=== PATIENT | male | born 1975 | race Caucasian/White ===

== ENCOUNTER 2025-08-25 08:40 | Outpatient (REF) | payer OTHER, SELFPAY ==
[2025-08-25 10:49] LABS: Hematocrit 42.0 % (42.0-52.0); Hemoglobin 14.4 g/dl (14.0-18.0); Mean Corpuscular HGB Conc 34.3 g/dl (31.0-36.0); Mean Corpuscular Hemoglobin 30.3 pg (27.0-33.0); Mean Corpuscular Volume 88.4 fL (80.0-98.0); NRBC Abs Auto 0.000 X10*3/uL (0.0-0.012); NRBC Pct Auto 0.0 /100WBC (0.0-0.2); Platelet Count 163 X10*3/uL (160-400); Red Blood Count 4.75 X10*6/uL (4.60-5.80); White Blood Count 6.0 X10*3/uL (4.8-10.8)
--- OUTSIDE RECORDS SUMMARY | 2025-08-25 11:09 | XMS_ITS | Clinical Summary ---
Author Organization [facility] [address] [facility] lding Address [address] [place] [address] Phone Care Team Providers Care South Asian History Professor Name Role Phone Sandra Wilder MD Primary Care Prov ider Allergies No known active allergies Medications ibuprofen (ADVIL,MOTRIN) 200 mg tablet Take 1 tablet (200 mg total) by mouth every 8 (eight) hours if needed for mild pain or moderate pain. Active felodipine (PLENDIL) 5 mg 24 hr tablet TAKE 1 TABLET BY MOUTH TWICE A DAY 180 tablet 1 5 Active sodium,potassiu m,mag sulfates (Suprep Bowel Prep Kit) 17.5-3.13-1.6 gram recon soln bowel prep kit oral solution Take 177ML by mouth for 2 doses. SEE INSTRUCTIONS PROVIDED BY OFFICE. 1 kit 5 Active Active Problems Problem Noted Date Diagnosed Date Family history of colon cancer in father 025 Benign prostatic hyperplasia 11/15/2024 Hyperlipidemia 11/13/2023 Goiter 04/29/2018 Overview (08/17/2024): [place] 04/2018. Normal tsh Obstructive sleep apnea 02/22/2018 Overview (08/17/2024): [facility] Home Polysomnogram: Date 02/15/2018; AHI 6, Unclassified apneas 0; Obstructive apneas 0; Central apneas 2; Mixed apneas 0; hypopneas 40; average oxygen saturation 95% (lowest 81% without saturations <88% for 5% or more of study) - Obstructive Sleep Apnea - mild; mostly hypopneas; without sleep related hypoventilation by 2018 home polysomnogram. *Pt reports non-adherance to CPAP 08/2018. Tried multiple masks and has given up.* Aneurysm of thoracic aorta (CMS/HCC V24) 016 Essential hypertension 06/25/2016 Palpitations 01/14/2016 Congenital heart disease in adult 05/11/2015 Encounters Date Type Department Care Team Description 07/05/2025 9:45 AM EDT Office Visit [facility] [place] [address] [place] [id number] [place] Bursitis of left shoulder (Primary Dx) from Last 3 Months Immunizations Immunization Administration Dates Next Due Hepatitis A Adult (Havrix; V aqta) 19yo and older 05/04/2019 Influenza Quadravalent, MDCK , 0.5ml, preservative free (Flucelvax) 6mo and older 10/14/2019 Influenza Quadravalent, MDCK , 0.5ml, with preservative (Flucelvax) 6mo and older 07/09/2021 Influenza trivalent, 0.5mL, preservative free (Fluarix; FluLaval; Fluzone) ages 6mo and older (Afluria) 3 years and older 06/27/2020 Influenza, Unspecified 06/30/2024,07/20/2023, Tdap Tetanus diptheria acell ular pertussis (Boostrix; Adacel) 7yo and older 07/26/2022,05/11/2015 Surgical History Surgery Date Site/Laterality Comments OTHER SURGICAL HISTORY PROCEDURE: [place] RPR CAR ANOMAL SURG ENLGMENT VENTR SEPTL DFCT BLADDER SURGERY 2014 PROCEDURE: HISTORICAL BLADDER SURGERY; COMMENT: ? benign internal cysts OTHER SURGICAL HISTORY 1992 PROCEDURE: HISTORY OTHER; COMMENT: Open exploration due to peritonitis ruptured appendix COLONOSCOPY 08/27/2018 PROCEDURE: HISTORICAL COLONOSCOPY; COMMENT: Diminutive polyps 3: Tubular adenoma 2, hyperplastic 1. COLONOSCOPY 08/17/2020 PROCEDURE: HISTORICAL COLONOSCOPY; COMMENT: Normal; repeat in 5 years. UPPER GASTROINTESTINAL ENDOSCOPY 08/17/2020 PROCEDURE: [place] UPPER GI ENDOSCOPY PERFORMED; COMMENT: Visually normal, gastric biopsies obtained: Positive for Helicobacter pylori. Medical History Medical History Date Comments Simplex coarctation of the aorta DX:Simplex coarctation of the aorta Family history of colon cancer D X:Family history of colon cancer Family history of colonic polyps DX:Family history of colonic polyps Essential hypertension DX:Essent ial hypertension Disorder of thyroid DX:Disorder of thyroid Family history of colon cancer 04/14/2018 D X:Family history of colon cancer History of Helicobacter pylo ri infection 08/22/2020 DX:History of Helicobacter p ylori infection; COMMENT: 08/22/2020---treated; stool test negative 10/09/2020. Hyperlipidemia 11/13/2023 DX:Hyperlipidemi a Family History Medical History Relation Name Comments Stomach cancer Aunt maternal Colon cancer Father Colon polyps Father Prostate cancer Father Prostate cancer Paternal Grandfather Colon polyps Sister Relation Name Status Comments Aunt Father (Age 78) Maternal Grandfather Maternal Grandmother Mother Alive Paternal Grandfather Paternal Grandmother Sister Alive Social History Tobacco Use Types Packs/Day Years Used Date Smoking Tobacco: Never Smokeless Tobacco: Never Tobacco Cessation:Counseling Given: Not Answered Alcohol Use Standard Drinks/Week Comments No 0 (1 standard drink = 0.6 oz pur e alcohol) Sex and Gender Information Value Date Recorded Sex Assigned at Not on file Legal Sex Male 3:22 AM EST Gender Identity Not on file Sexual Orientation Not on file Obstetrics History Last Filed Vital Signs Vital Sign Reading Time Taken Comments Blood Pressure 124/70 05/16/2025 8:40 AM EDT Pulse 77 05/16/2025 8:27 AM EDT Temperature 36.8 C (98.2 F) 04/28/2025 9:32 AM EDT Respiratory Rate 16 07/05/2025 9:30 AM EDT Oxygen Saturation 98% 04/28/2025 9:32 AM EDT Inhaled Oxygen Concentration - - Weight 92.1 kg (203 lb) 07/05/2025 9:30 AM EDT Height 182.9 cm (6') 07/05/2025 9:30 AM EDT Body Mass Index 27.53 07/05/2025 9:30 AM EDT Plan of Treatment Upcoming Encounters Date Type Department Care Team (Late st Contact Info) Description 08/28/2025 9:30 AM EDT Hospital Encounter [facility] [address] [place] [phone] Agustin Brooks MD [address] [address] Annalee Singer CRNA [address] [place] [address] Maikol Hicks MD [address] [facility] [address] [place] [address] Health Maintenance Due Date Last Done Comments Hepatitis B Vaccines (1 of 3 - 19+ 3-dose series) 03/15/1993 HIV Screening 10/11/2022 Hepatitis C Screening 10/11/2022 Pneumococcal Vaccine: 50+ Years (1 of 1 - PCV) 03/15/2024 Zoster Vaccines (1 of 2) 03/15/2024 COVID-19 Vaccine (1 - 2023- season) 2025 Influenza Vaccine (#1) 2025 , 08/21/2023, 07/20/2023, Additional history exists Colorectal Cancer Screening: Colonoscopy 08/17/2025 08/17/2020, 08/27/2018 Social Influencers of Health Screening 09/13/2025 09/13/2024 Hypertension/CHF/CAD Annual BMP Blood Test 11/16/2025 11/16/2024, 11/13/2023, 07/11/2020, Additional history exists Cholesterol Screening (Lipid Panel) 11/16/2029 11/16/2024, 11/13/2023 DTaP,Tdap,and Td Vaccines (3 - Td or Tdap) 07/26/2032 07/26/2022, 05/11/2015 RSV Immunization Adult Patients (1 - 1-dose 75+ series) 03/15/2049 Hepatitis A Vaccines Aged Out 05/04/2019 No long er eligible based on patient's age to complete this topic Depression Screening Completed 05/16/2025 HIB Vaccines Aged Out No longer eligi ble based on patient's age to complete this topic HPV Vaccines Aged Out No longer eligi ble based on patient's age to complete this topic IPV Vaccines Aged Out No longer eligi ble based on patient's age to complete this topic MMR Vaccines Aged Out No longer eligi ble based on patient's age to complete this topic Meningococcal ACWY Vaccine Aged Out N o longer eligible based on patient's age to complete this topic Meningococcal B Vaccine Aged Out No l onger eligible based on patient's age to complete this topic RSV Immunization Patients Under 20 months Aged Out No longer eligible based on patient's age to complete this topic Varicella Vaccines Aged Out No longer eligible based on patient's age to complete this topic Procedures Procedure Name Priority Date/Time Associated Diagnosis Comments COMPREHENSIVE METABOLIC PANEL Routine 11/16/2024 8:39 AM EST Routine general medical examination at a [facility] care [facility] LIPID PANEL WITH REFLEX TO DIRECT LDL Routine 11/16/2024 8:39 AM EST Routine general medical examination at a [facility] care facility HM COLONOSCOPY Routine 08/17/2020 from Last 3 Months or Most Recently Relevant to Health Maintenance Results * (ABNORMAL) Lipid panel with reflex to direct LDL (11/16/2024 8:39 AM EST) Cholesterol 169 0 - 200 mg/dL LAB CHEMISTRY METHOD 11/16/2024 1:00 PM [facility] Triglycerides 66 0 - 150 mg/dL LAB CHEMISTRY METHOD 11/16/2024 1:00 PM [facility] HDL 53 >=40 mg/dL LAB CHEMISTRY METHOD 11/16/2024 1:00 PM [facility] LDL Calculated 103(H) 0 - 100 mg/dL LAB CHEMISTRY METHOD 11/16/2024 1:00 PM [facility] VLDL Cholesterol Rashel 13.2 mg/dL LAB CHEMISTRY METHOD 11/16/2024 1:00 PM [facility] Non HDL Chol. (LDL+VLDL) 116 <145 mg/dL LAB CHEMISTRY METHOD 11/16/2024 1:00 PM [facility] Chol/HDL Ratio 3.2 0.0 - 4.4 LAB CHEMISTRY METHOD 11/16/2024 1:00 PM [facility] Blood Venous blood specimen / Unknown Venipuncture / Unknown 11/16/2024 8:39 AM EST 11/16/2024 8:39 AM EST us Ángela STILES LAB BLOOD ORDERABLES Final Result [facility] [address] [place] [address], [place] [phone] * Comprehensive metabolic panel (11/16/2024 8:39 AM EST) Sodium 137 133 - 145 mmol/L LAB CHEMISTRY METHOD 11/16/2024 1:00 PM [facility] Potassium 4.5 3.5 - 5.5 mmol/L LAB CHEMISTRY METHOD 11/16/2024 1:00 PM [facility] Chloride 105 96 - 110 mmol/L LAB CHEMISTRY METHOD 11/16/2024 1:00 PM [facility] CO2 28 21 - 32 mmol/L LAB CHEMISTRY METHOD 11/16/2024 1:00 PM [facility] Anion Gap 4 3 - 11 LAB CHEMISTRY METHOD 11/16/2024 1:00 PM [facility] Glucose 91 70 - 100 mg/dL LAB CHEMISTRY METHOD 11/16/2024 1:00 PM [facility] BUN 12 5 - 25 mg/dL LAB CHEMISTRY METHOD 11/16/2024 1:00 PM [facility] Creatinine 0.90 0.70 - 1.30 mg/dL LAB CHEMISTRY METHOD 11/16/2024 1:00 PM [facility] eGFR 104 >=60 mL/min/1. 73m2 LAB CHEMISTRY METHOD 11/16/2024 1:00 PM [facility] Comment:Calculation based on the Chronic Kidney Disease Epidemiology Collaboration (CKD-EPI) equation refit without adjustment for race. BUN/Creatinine Ratio 13.3 LAB CHEMISTRY METHOD 11/16/2024 1:00 PM [facility] Calcium 8.8 8.5 - 10.5 mg/dL LAB CHEMISTRY METHOD 11/16/2024 1:00 PM [facility] AST (SGOT) 20 10 - 42 unit/L LAB CHEMISTRY METHOD 11/16/2024 1:00 PM [facility] ALT (SGPT) 31 10 - 60 unit/L LAB CHEMISTRY METHOD 11/16/2024 1:00 PM [facility] Alkaline Phosphatase 69 42 - 121 unit/L LAB CHEMISTRY METHOD 11/16/2024 1:00 PM [facility] Total Protein 7.1 6.0 - 8.0 g/dL LAB CHEMISTRY METHOD 11/16/2024 1:00 PM [facility] Albumin 4.0 3.2 - 5.0 g/dL LAB CHEMISTRY METHOD 11/16/2024 1:00 PM [facility] Total Bilirubin 0.8 0.0 - 1.4 mg/dL LAB CHEMISTRY METHOD 11/16/2024 1:00 PM [facility] Blood Venous blood specimen / Unknown Venipuncture / Unknown 11/16/2024 8:39 AM EST 11/16/2024 8:39 AM EST Ángela STILES LAB BLOOD ORDERABLES Final Result [facility] [address] [place] [address], * Colonoscopy (08/17/2020) Colonoscopy no interpretation , abstracted Anatomical Region Laterality Modality Other Historical Provider MD HEALTH MAINTENANCE Final Result from Last 3 Months or Most Recently Relevant to Health Maintenance Insurance [facility] PL[facility] Care Teams South Asian History Professor Relationship Specialty Start Date End Date Sandra Wilder MD [address] [place] [id number] PCP - General Internal Medicine 03/02/15
[2025-08-25 11:31] LABS: Alanine Aminotransferase 39 U/L (0-40); Albumin Level 4.8 g/dL (3.5-5.0); Alkaline Phosphatase 66 U/L (39-117); Anion Gap 13 (12-20); Aspartate Amino Transferase 31 U/L (5-37); Blood Urea Nitrogen 12 mg/dL (9-16); Calcium 9.9 mg/dL (8.4-10.2); Carbon Dioxide 30 mmol/L (22-29); Chloride 105 mmol/L (96-108); Cholesterol 109 mg/dL (<200); Estimated Glomerular Filt Rate > 60; HDL Cholesterol 42 mg/dL (>40); Potassium 4.7 mmol/L (3.3-5.1); Sodium 143 mmol/L (135-145); Total Protein 8.0 g/dL (6.5-8.0); Triglycerides 57 mg/dL (<150)
[2025-08-25 11:55] LABS: Appearance Urine Clear; Glucose Urine UA Negative (Negative); PH 7.0 (5.0-9.0); Specific Gravity - Urine 1.025 (1.005-1.025)
[2025-08-25 12:15] LABS: HIV Num 1 0.05 S/CO (0.00-0.99); ~HepC Num1 0.13 S/CO (0.00-0.79); ~Hepatitis C Antibody Nonreactive (Nonreactive)
== END 2025-08-25 08:41 | disposition home or self-care (01) ==
LOC: HO.LAB 08:40
PROVIDERS: PCP Internal Medicine; Visit Provider Internal Medicine
DX: Z00.00 Encounter for general adult medical examination without abnormal findings (principal); I10 Essential (primary) hypertension; E78.00 Pure hypercholesterolemia, unspecified; Z79.899 Other long term (current) drug therapy; Z86.73 Personal history of transient ischemic attack (TIA), and cerebral infarction without residual deficits
CPT/HCPCS: 36415; 80053; 80061; 81003; 82306; 83036; 84443; 85027; 86803; 87389; 96127

== ENCOUNTER 2025-08-25 08:40 | Outpatient (AMB) | payer OTHER, SELFPAY ==
--- OUTSIDE RECORDS SUMMARY | 2016-03-11 | XMS_ITS | Encounter Summary ---
Author Organization [facility] Address [address] [place] [phone] Phone Care Team Providers Care Cras Name Role Phone Unavailable Primary Care Provider Unavailabl e Encounter Details Date Type Department Care Team (Late st Contact Info) Description 03/11/2016 [facility] Encounter [facility] [address] [place] [address] Latha Parikh MD [address] [place] [phone] [email or web address] Social History Tobacco Use Types Packs/Day Years Used Date Smoking Tobacco: Never Smokeless Tobacco: Never Alcohol Use Standard Drinks/Week Comments Not Asked 0 (1 standard drink = 0.6 oz pur e alcohol) Education Answer Date Recorded Are you interested in more education? Not on padilla e 02/27/2023 Are you concerned about learning? Not on file 02/27/2023 No 02/27/2023 No 02/27/2023 Digital Access Answer Date Recorded No 03/30/2023 No 03/30/2023 No 03/30/2023 Reliable internet access at home? Not on file 03/30/2023 Device with a working camera? 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 Not on file Not on file documented as of this encounter Plan of Treatment Not on file documented as of this encounter Procedures Procedure Name Priority Date/Time Associated Diagnosis Comments CT CHEST OUTSIDE WITH INTERPRETATION OR CONSULT Routine 03/11/2016 12:00 AM EDT documented in this encounter Results * CT Chest Outside With Interpretation Or Consult (03/11/2016 12:00 AM EDT) 08/29/2016 10:2 2 AM EDT Impressions [facility] - 08/29/2016 12:31 PM EDT Status post posterolateral repair of coarctation with mild residual narrowing of the posterior/lateral aortic arch just distal to the left subclavian origin. Two small pseudoaneurysms are seen closely posterior to the latter and likely arising from the sites of anastomoses. Small hiatal hernia. This report is limited to the body part and modality requested, regardless of which images were uploaded. If additional reports are required, please contact the appropriate Division of the Radiology Department. Narrative [facility] - 08/29/2016 12:31 PM EDT TECHNIQUE: Interpretation of outside CT scan CT Scan of the Chest and Abdomen WITH intravenous contrast. COMPARISON: None. FINDINGS: VASCULAR FINDINGS: There is a left 3 vessel aortic arch. There are minimal calcified and noncalcified atherosclerotic plaques in the aorta and its major branches. There is no evidence of a flap within the aorta to suggest a dissection. There is an about 25% focal shelflike narrowing of the posterior/lateral aortic arch just distal to the left subclavian origin. Immediately distal and posterior/superior to the latter, there is a focal pouching of the descending aorta measuring 2.3 cm x 1.5 cm. Two centimeter inferior to this pseudoaneurysm, other outpouching is seen, measuring 1.6 cm x 1.1 cm. These pseudoaneurysms likely arise from the site of anastomosis after coarctation repair. The celiac artery, SMA, and WANG are patent. There are single renal artery bilaterally. They are widely patent without signs of significant stenosis. Measured on double-oblique short axis plane: THORACIC AORTA Ascending aorta: 3.5 cm x 3.4 cm The aortic arch measures 2.4 cm x 2.1 cm Descending aorta: 2.5 cm x 2.4 cm Diaphragmatic hiatus: 2.0 cm x 1.8 cm ABDOMINAL AORTA: Suprarenal Abdominal aorta: 1.8 cmx 1.8 cm Infrarenal abdominal aorta: 1.6 cm x 1.6 cm Abdominal aorta at the level of the iliac bifurcation: 1.7 cm x 1.5 cm Venous: There is no vein thrombosis. There is no extrinsic compression of the left common iliac vein by the adjacent crossing right common iliac artery nor extrinsic compression of other pelvic venous sytem. No evidence of collateral veins . The distal IVC is patent The gonadal vein are normal in size (<6mm) without signs of reflux on the dynamic post contrast phase. The bilateral renal veins are patent without significant stenosis NONVASCULAR FINDINGS: Lines/tubes: None. Lungs and Airways: Postsurgical changes are seen in the left upper lobe, after surgical repair for coarctation via posterolateral approach. Otherwise, the lungs and airways are normal with no focal abnormality demonstrated. Pleura: The pleural spaces are clear. Heart and mediastinum: The thyroid gland is normal. No significant mediastinal, hilar or axillary lymphadenopathy is seen. The heart and pericardium are within normal limits. Soft tissues: Normal. Abdomen: Limited contrast-enhanced views of the abdomen show no abnormality within the visualized liver, spleen, or kidneys. The adrenal glands are normal. The pancreas appears normal. Colonic diverticulosis, no evidence for diverticulitis. Small hiatal hernia is noted. Bones: Mild degenerative changes of the thoracolumbar spine. No evidence for suspicious lytic or blastic lesions. Procedure Note Luis M Mustafa MD, BILLIE - 08/29/2016 TECHNIQUE: Interpretation of outside CT scan CT Scan of the Chest and Abdomen WITH intravenous contrast. COMPARISON: None. FINDINGS: VASCULAR FINDINGS: There is a left 3 vessel aortic arch. There are minimal calcified and noncalcified atherosclerotic plaques inthe aorta and its major branches. There is no evidence of a flap within theaorta to suggest a dissection. There is an about 25% focal shelflike narrowing of the posterior/lateralaortic arch just distal to the left subclavian origin. Immediately distal and posterior/superior to the latter, there is a focal pouching of thedescending aorta measuring 2.3 cm x 1.5 cm. Two centimeter inferior to thispseudoaneurysm, other outpouching is seen, measuring 1.6 cm x 1.1 cm. Thesepseudoaneurysms likely arise from the site of anastomosis after coarctation repair. The celiac artery, SMA, and WANG are patent. There are single renal artery bilaterally. They are widely patent withoutsigns of significant stenosis. Measured on double-oblique short axis plane: THORACIC AORTA Ascending aorta: 3.5 cm x 3.4 cm The aortic arch measures 2.4 cm x 2.1 cm Descending aorta: 2.5 cm x 2.4 cm Diaphragmatic hiatus: 2.0 cm x 1.8 cm ABDOMINAL AORTA: Suprarenal Abdominal aorta: 1.8 cmx 1.8 cm Infrarenal abdominal aorta: 1.6 cm x 1.6 cm Abdominal aorta at the level of the iliac bifurcation: 1.7 cm x 1.5 cm Venous: There is no vein thrombosis. There is no extrinsic compression of the left common iliac vein by theadjacent crossing right common iliac artery nor extrinsic compression of otherpelvic venous sytem. No evidence of collateral veins . The distal IVC is patent The gonadal vein are normal in size (<6mm) without signs of reflux onthe dynamic post contrast phase. The bilateral renal veins are patent without significant stenosis NONVASCULAR FINDINGS: Lines/tubes: None. Lungs and Airways: Postsurgical changes are seen in the left upper lobe,after surgical repair for coarctation via posterolateral approach. Otherwise,the lungs and airways are normal with no focal abnormality demonstrated. Pleura: The pleural spaces are clear. Heart and mediastinum: The thyroid gland is normal. No significantmediastinal, hilar or axillary lymphadenopathy is seen. The heart and pericardium arewithin normal limits. Soft tissues: Normal. Abdomen: Limited contrast-enhanced views of the abdomen show noabnormality within the visualized liver, spleen, or kidneys. The adrenal glands arenormal. The pancreas appears normal. Colonic diverticulosis, no evidence for diverticulitis. Small hiatal hernia is noted. Bones: Mild degenerative changes of the thoracolumbar spine. No evidencefor suspicious lytic or blastic lesions. IMPRESSION: Status post posterolateral repair of coarctation with mild residualnarrowing of the posterior/lateral aortic arch just distal to the left subclavianorigin. Two small pseudoaneurysms are seen closely posterior to the latter andlikely arising from the sites of anastomoses. Small hiatal hernia. This report is limited to the body part and modality requested, regardlessof which images were uploaded. If additional reports are required, pleasecontact the appropriate Division of the Radiology Department. us Latha Parikh MD IMG OUTSIDE IMAGING W/ INTERP RETATION Final Result [facility] [address] [place] [address] documented in this encounter Visit Diagnoses Not on filedocumented in this encounter Additional Source Comments The information contained in this document represents components of the legal health record. It is not the complete legal health record.[facility]
--- OUTSIDE RECORDS SUMMARY | 2016-03-18 | XMS_ITS | Encounter Summary ---
Author Organization [facility] Address [address] [place] [phone] Phone Care Team Providers Care Insulation Worker Name Role Phone Unavailable Primary Care Provider Unavailabl e Encounter Details Date Type Department Care Team (Late st Contact Info) Description 03/18/2016 Hospital Encounter [facility] [address] [place] [address] Latha Parikh MD [address] [place] [phone] 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 No intracranial arterial stenosis, aneurysm, or other lesion is identified. This report is limited to the body part and modality requested, regardless of which images were uploaded. If additional reports are required, please contact the appropriate division of the Radiology Department. Narrative [facility] - 08/29/2016 5:43 PM EDT Interpretation of outside CT scan Reason: History of coarctation of aorta status post repair at age 8, question of thoracic aortic aneurysm TECHNIQUE: Head CT WITH intravenous contrast. COMPARISON: None FINDINGS: HEAD CT: No noncontrast images of the head were provided. On the limited head CTA images provided, the brain parenchyma demonstrates no significant abnormality. There is no evidence of intracranial hemorrhage, infarction or intracranial mass lesion. Ventricles, sulci, and cisterns are normal in size and configuration. The bones and extracranial soft tissues are unremarkable. There is a right maxillary retention cyst. The mastoid air cells are well aerated. HEAD CTA: No intracranial arterial stenosis, aneurysm, or other lesion is identified. The intracranial internal carotid arteries and the anterior, middle and posterior cerebral arteries appear normal. The intracranial vertebral arteries and the basilar artery appear normal. There is a left posterior communicating artery. The right posterior communicating artery is not clearly visualized. An anterior communicating artery is present. The major intracranial venous structures appear normal, without evidence of thrombosis. Procedure Note Jose Vargas MD, PhD - 08/29/[address] scan Reason: History of coarctation of aorta status post repair at age 8,question of thoracic aortic aneurysm TECHNIQUE: Head CT WITH intravenous contrast. COMPARISON: None FINDINGS: HEAD CT: No noncontrast images of the head were provided. On the limited head CTA images provided, the brain parenchyma demonstratesno significant abnormality. There is no evidence of intracranial hemorrhage, infarction orintracranial mass lesion. Ventricles, sulci, and cisterns are normal in size and configuration. The bones and extracranial soft tissues are unremarkable. There is aright maxillary retention cyst. The mastoid air cells are well aerated. HEAD CTA: No intracranial arterial stenosis, aneurysm, or other lesion isidentified. The intracranial internal carotid arteries and the anterior, middle and posterior cerebral arteries appear normal. The intracranial vertebral arteries and the basilar artery appearnormal. There is a left posterior communicating artery. The right posterior communicating artery is not clearly visualized. An anterior communicatingartery is present. The major intracranial venous structures appear normal, without evidenceof thrombosis. IMPRESSION: No evidence of intracranial hemorrhage, infarction or intracranial masslesion. No intracranial arterial stenosis, aneurysm, or other lesion isidentified. This report is limited to the body part and modality requested, regardlessof which images were uploaded. If additional reports are required, pleasecontact the appropriate division of the Radiology Department. Latha Parikh MD IMG OUTSIDE IMAGING W/ INTERP RETATION Final Result [facility] [address] [facility] [place] [address] documented in this encounter Visit Diagnoses Not on filedocumented in this encounter Additional Source Comments The information contained in this document represents components of the legal health record. It is not the complete legal health record.[facility]
--- OUTSIDE RECORDS SUMMARY | 2016-03-20 | XMS_ITS | Encounter Summary ---
Author Organization [facility] Address [address] [place] [phone] Phone Care Team Providers Care Group Underwriter Name Role Phone Unavailable Primary Care Provider Unavailabl e Encounter Details Date Type Department Care Team (Late st Contact Info) Description 03/20/2016 Hospital Encounter [facility] [address] [place] [address] Latha Parikh MD [address] [place] [phone] [email or web address] 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 us Latha Parikh MD IMG OUTSIDE IMAGING W/OUT INT ERPRETATION Final Result [facility] documented in this encounter Visit Diagnoses Not on filedocumented in this encounter Additional Source Comments The information contained in this document represents components of the legal health record. It is not the complete legal health record.[facility]
--- OUTSIDE RECORDS SUMMARY | 2016-06-14 | XMS_ITS | Encounter Summary ---
Author Organization [facility] Address [email or web address] [place] [address] Phone Care Team Providers Care Stitcher Set Up Operator Automatic Name Role Phone Pcp, Unknown Primary Care Provider Unavailabl e Encounter Details Date Type Department Care Team (Late st Contact Info) Description 06/14/2016 Hospital Encounter [facility] [address] [place] [address] Latha Parikh MD [address] [place] [phone] 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 Not on file documented as of this encounter Plan of Treatment Not on file documented as of this encounter Procedures Procedure Name Priority Date/Time Associated Diagnosis Comments CT CHEST OUTSIDE WITH INTERPRETATION OR CONSULT Routine 06/14/2016 12:00 AM EDT documented in this encounter Results * CT Chest Outside With Interpretation Or Consult (06/14/2016 12:00 AM EDT) 08/29/2016 11:5 9 AM EDT Impressions [facility] - 08/29/2016 12:31 PM EDT Stable postsurgical changes after posterolateral repair of coarctation with mild residual narrowing of the posterior/lateral aortic arch just distal to the left subclavian origin. Two small pseudoaneurysms are again seen closely posterior to the latter and likely arising from the sites of anastomoses, similar in appearance as before. Small hiatal hernia. This report is limited to the body part and modality requested, regardless of which images were uploaded. If additional reports are required, please contact the appropriate Division of the Radiology Department. Narrative [facility] - 08/29/2016 12:31 PM EDT TECHNIQUE: Interpretation of outside CT scan CT Scan of the Chest WITH intravenous contrast. COMPARISON: CT Chest and Abdomen 03/11/2016 FINDINGS: VASCULAR FINDINGS: There is a left 3 vessel aortic arch. There are minimal calcified and noncalcified atherosclerotic plaques in the aorta and its major branches. There is no evidence of a flap within the aorta to suggest a dissection. Unchanged about 25% focal shelflike narrowing of the posterior/lateral aortic arch just distal to the left subclavian origin. Immediately distal and posterior/superior to the latter, there is again a focal pouching of the descending aorta measuring 2.3 cm x 1.5 cm. Two centimeter inferior to this pseudoaneurysm, other outpouching is seen, measuring 1.6 cm x 1.1 cm. These pseudoaneurysms likely arise from the site of anastomosis after coarctation repair. The celiac artery and SMA remain patent. There are single renal artery bilaterally. They are widely patent without signs of significant stenosis. Unchanged diameters of the different portions of the thoracic aorta. Venous: There is no vein thrombosis. There [...] Normal. Abdomen: Limited contrast-enhanced views of the upper abdomen show no abnormality within the visualized [...] CT scan CT Scan of the Chest WITH intravenous contrast. COMPARISON: CT Chest and Abdomen 03/11/2016 FINDINGS: VASCULAR FINDINGS: There is a left 3 vessel aortic arch. There are minimal calcified and noncalcified atherosclerotic plaques inthe aorta and its major branches. There is no evidence of a flap within theaorta to suggest a dissection. Unchanged about 25% focal shelflike narrowing of the posterior/lateralaortic arch just distal to the left subclavian origin. Immediately distal and posterior/superior to the latter, there is again a focal pouching of the descending aorta measuring 2.3 cm x 1.5 cm. Two centimeter inferior tothis pseudoaneurysm, other outpouching is seen, measuring 1.6 cm x 1.1 cm.These pseudoaneurysms likely arise from the site of anastomosis aftercoarctation repair. The celiac artery and SMA remain patent. There are single renal artery bilaterally. They are widely patent withoutsigns of significant stenosis. Unchanged diameters of the different portions of the thoracic aorta. Venous: There is no vein thrombosis. There [...] Normal. Abdomen: Limited contrast-enhanced views of the upper abdomen show no abnormality within the visualized liver, spleen, or kidneys. The adrenalglands are normal. The pancreas appears normal. Colonic diverticulosis, noevidence for diverticulitis. Small hiatal hernia is noted. Bones: Mild degenerative changes of the thoracolumbar spine. No evidencefor suspicious lytic or blastic lesions. IMPRESSION: Stable postsurgical changes after posterolateral repair of coarctationwith mild residual narrowing of the posterior/lateral aortic arch just distal to theleft subclavian origin. Two small pseudoaneurysms are again seen closelyposterior to the latter and likely arising from the sites of anastomoses, similar in appearance as before. Small hiatal hernia. This report is limited to the body part and modality requested, regardlessof which images were uploaded. If additional reports are required, pleasecontact the appropriate Division of the Radiology Department. us Latha Parikh MD IMG OUTSIDE IMAGING W/ INTERP RETATION Final Result [facility] [address] [address] documented in this encounter Visit Diagnoses Not on filedocumented in this encounter Care Teams Stitcher Set Up Operator Automatic Relationship Specialty Start Date End Date Pcp, Unknown PCP - General 04/15/16 07/15/16 documented as of this encounter Additional Source Comments The information contained in this document represents components of the legal health record. It is not the complete legal health record.[facility]
--- OUTSIDE RECORDS SUMMARY | 2016-10-07 01:00 | XMS_ITS | Encounter Summary ---
Author Organization [facility] Address [address] [place] [phone] Phone Care Team Providers Care Area Operations Director Name Role Phone Sandra Wilder MD Primary Care Pr ovid Encounter Details Date Type Department Care Team (Late st Contact Info) Description 10/07/2016 Hospital Encounter [facility] [address] [place] [address] Latha Parikh MD [address] [place] [phone] [email or web address] 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 us Latha Parikh MD IMG OUTSIDE IMAGING W/OUT INT ERPRETATION Final Result [facility] documented in this encounter Visit Diagnoses Not on filedocumented in this encounter Care Teams Area Operations Director Relationship Specialty Start Date End Date Sandra Wilder MD [address] [place] [phone] PCP - General Internal Medicine 07/16/16 documented as of this encounter Additional Source Comments The information contained in this document represents components of the legal health record. It is not the complete legal health record.[facility]
--- NOTE | 2025-08-25 08:50 | A.OFFPC_ITS ---
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 Transferring care from Dr Fonseca ([facility]). Medical records have been requested and have not received. Adjunct English Instructor Required: No Adjunct English Instructor: Present Accompanied by: Spouse Allergies No Known Allergies Allergy (Verified 08/25/25 09:02) Medication List - Last Reconciled 08/25/25 by Lesvia Cortez MD amlodipine 5 mg PO DAILY aspirin 81 mg PO DAILY atorvastatin (Lipitor) 80 mg PO BEDTIME clopidogrel 75 mg PO DAILY Tobacco use date assessed: 08/25/25 Dental Screening Dental Screen Date: 08/25/25 Did you have a dental visit in the last 12 months?: No Did you have a dental problem in the last 6 months where you did not have access to dental care?: No Was dental information given to patient?: No HPI HPI Comments History of Present Illness Details 50 yo M with PMH of stroke who is presen renatag to our clinic to establish care. He was recently admitted to [facility] after recent stroke DOA 21/07/2025 to 07/24/2025. The patient underwent brain MRI which showed right pontine lacunar infarct. The patient was started on Plavix, Statin, clopidogrel and amlodipine 5 mg. Today his BP is 140/90. HE has a log of his BP and the number are 130 to 150 systolic. The patient was advised to follow-up with Neurology and cardiology for cardiac MRI. Although the patient's paperwork does not report any cardiac W-U done at [facility]. The patient reports his speech is back to normal, but he still continue to have left sided weakness. Preventative care measures discussed include colon cancer screening, which the patient has not yet undergone. The patient declined both colonoscopy and stool test options despite understanding the importance of early detection. The patient is requesting Paid leave paperwork after his recent stroke. We will provide the patient with one week paid leave as per his request. Physical Therapy referral for further evaluation of patient's left side weakness. [facility] Surgical History (Updated 08/25/25 @ 09:08 by LESLIE Patino) No pertinent past surgical history Social History (Updated 08/25/25 @ 08:50 by LESLIE Patino) Housing: House Alcohol intake: never Patient Tobacco Use Status: Never used Tobacco e-Cigarette/Vaping Use: Never Used Second Hand Smoke Exposure: No service: Yes ([place]) Current occupational status: employed Cognitive needs: No Hearing needs: No Vision needs: No Questionnaire PHQ-9 Over the last 2 weeks, how often have you been bothered by any of the following problems? 1. Little interest or pleasure in doing things: not at all 2. Feeling down, depressed, or hopeless: not at all 3. Trouble falling or staying asleep, or sleeping too much: not at all 4. Feeling tired or having little energy: not at all 5. Poor appetite or overeating: not at all 6. Feeling bad about yourself - or that you are a failure or have let yourself or your family down: not at all 7. Trouble concentrating on things, such as reading the newspaper or watching television: not at all 8. Moving or speaking so slowly that other people could have noticed. Or the opposite - being so fidgety or restless that you have been moving around a lot more than usual: not at all 9. Thoughts that you would be better off or of hurting yourself in some wa y: not at all Total score: 0 Depression Screening Interpretation: Negative Depression Screening Done: Yes Source: Developed by Drs. Drew Jamison, Natasha Tesfaye, Adams Rivas and colleagues, with an educational diego from [employer]. Thrive Questionnaire Date Thrive assessed: 08/19/25 I am a: Patient What is your living situation today?: I have a steady place to live Within the past 12 months, did the food you bought not last and you didn't have the money to get more?: Never true Within the past 12 months, did you worry whether your food would run out before you got money to buy more?: Never true Do you have trouble paying for medicines?: No Do you have trouble getting transportation to medical appointments?: No Do you have trouble paying your heating and electricity bill?: No Do you have trouble taking care of your child, family member or friend?: No Do you have trouble with day-to-day activities such as bathing, preparing meals, shopping, managing finances, etc.?: No Are you currently unemployed and looking for a job?: No Are you interested in more education?: No Please select the resources that you would like help with: None Currently or been in a relationship where the following occur: No concerns reported THRIVE Score: 0 AUDIT C Alcohol Use Questionnaire (AUDIT-C) 1. How often do you have a drink containing alcohol?: Never 2. How many drinks containing alcohol do you have on a typical day when you are drinking?: 1 or 2 3. How often do you have six or more drinks on one occasion?: Never Total Score: 0 JOSSY-7 AMB Questionnaire JOSSY-7 Date JOSSY - 7 assessed: 08/25/25 Feeling nervous, anxious, or on edge: 0 = Not at all Not being able to stop or control worryin = Not at all Worrying too much about different things: 0 = Not at all Trouble relaxin = Not at all Being so restless that it is hard to sit still: 0 = Not at all Becoming easily annoyed or irritable: 0 = Not at all Feeling afraid as if something awful might happen: 0 = Not at all Total JOSSY-7 score (0-4 normal; 5-9 mild; 10-14 moderate; 15-21 severe): 0 Source: Developed by Drs. Drew Jamison, Natasha Tesfaye, Adams Rivas and colleagues, with an educational diego from [employer]. Review of Systems Const Details: Positives besides what was mentioned in HPI are in BOLD Constitutional: No Weight Change, No Fever, No Chills, No Night Sweats, No Fatigue, No Malaise ENT/Mouth: No Hearing Changes, No Ear Pain, No Nasal Congestion, No Sinus Pain, No Hoarseness, No sore throat, No Rhinorrhea, No Swallowing Difficulty Eyes: No Eye Pain, No Swelling, No Redness, No Foreign Body, No Discharge, No Vision Changes Cardiovascular: No Chest Pain, No SOB, No PND, No Dyspnea on Exertion, No Orthopnea, No Claudication, No Edema, No Palpitations Respiratory: No Cough, No Sputum, No Wheezing, No Smoke Exposure, No Dyspnea Gastrointestinal: No Nausea, No Vomiting, No Diarrhea, No Constipation, No Pain, No Heartburn, No Anorexia, No Dysphagia, No Hematochezia, No Melena, No Flatulence, No Jaundice Genitourinary: No Dysmenorrhea, No DUB, No Dyspareunia, No Dysuria, No Urinary Frequency, No Hematuria, No Urinary Incontinence, No Urgency, No Flank Pain, No Urinary Flow Changes, No Hesitancy Musculoskeletal: No Arthralgias, No Myalgias, No Joint Swelling, No Joint Stiffness, No Back Pain, No Neck Pain, No Injury History Skin: No Skin Lesions, No Pruritis, No Hair Changes, No Breast/Skin Changes, No Nipple Discharge Neuro: No Weakness, No Numbness, No Paresthesias, No Loss of Consciousness, No Syncope, No Dizziness, No Headache, No Coordination Changes, No Recent Falls Psych: No Anxiety/Panic, No Depression, No Insomnia, No Personality Changes, No Delusions, No Rumination, No SI/HI/AH/VH, No Social Issues, No Memory Changes, No Violence/Abuse Hx., No Eating Concerns Heme/Lymph: No Bruising, No Bleeding, No Transfusions History, No Lymphadenopathy Endocrine: No Polyuria, No Polydipsia, No Temperature Intolerance Physical exam (Primary Care) Vital Signs: Last Vital Signs Temp 97.5 F 08/25/25 08:52 Pulse 81 08/25/25 08:52 BP 140/90 H 08/25/25 08:52 Pulse Ox 98 08/25/25 08:52 Oxygen Delivery Method Room Air 08/25/25 08:52 BMI result Body Mass Index 26.6 Tobacco/Smoking Status: Tobacco use Status Tobacco use date assessed 08/25/25 08/25/25 08:55 Patient Tobacco Use Status Never used Tobacco 08/25/25 08:55 e-Cigarette/Vaping Use Never Used 08/25/25 08:55 PHQ-9: PHQ-9 Score PHQ-9: Total score 0 08/25/25 08:55 Depression Screening Interpretation: Negative Thrive Assessment: Date of Thrive Assessment Date Thrive assessed 08/19/25 08/25/25 08:55 Currently or been in a relationship where the following occur: No concerns reported Const Other: Pertinent findings are in BOLD GENERAL APPEARANCE NAD, activity normal for age, well developed/ well nourished, no cyanosis, pallor, or diaphoresis. EYES lids/conjunctiva normal. EARS/NOSE/THROAT Mucous membranes moist, nares normal, lips/teeth normal uvula midline without oral pharyngeal erythema, exudate or swelling TMs normal bilaterally. No lymphangitis/lymphedema. HEAD/NECK normocephalic atraumatic, no facial trauma, neck is supple. RESPIRATORY respiratory effort normal, speaks in full sentences, no tripod position, no accessory muscle use. Lungs clear to auscultation without rhonchi, wheezes, rales CARDIAC Regular rate and rhythm, no edema. ABDOMINAL Soft, ND/NT. No evidence of fluid wave. No pulsatile masses on exam, rebound tenderness, Greenberg sign or pain over Mcburney's point. MUSCLES/EXTREMITIES No abnormal range of motion, no swelling. SKIN Warm, pink and dry. No rashes, dermatoses, petechiae or lesions. NEUROLOGICAL Speech is clear and appropriate. Normal level of consciousness. Gait and coordination are normal. 5/5 strength in all extremities. Minimal left sided weakness when compared to right side. PSYCH Normal mood and affect. Judgement/competence is appropriate. Coding Level of Care Code New Pt Level 4 (21598) New Pt Prev Care 40-64y(35268) Diagnoses Cerebrovascular accident (CVA), unspecified mechanism I63.9 CVA mechanism: unspecified Healthcare maintenance Z00.00 Primary hypertension I10 Hypertension type: primary hypertension Time Spent (min) 40 Assessment & Plan Assessment & Plan (1) Stroke: Code(s): I63.9 - Cerebral infarction, unspecified Category: Medical Qualifiers: CVA mechanism: unspecified Qualified Code(s): I63.9 - Cerebral infarction, unspecified Plan: - Recent hospitalization for lacunar stroke on MRI. - Continue current medications: aspirin, atorvastatin, and clopidogrel. - Referral to neurology for follow-up and further management. - Referral to physical therapy for evaluation and management of any residual weakness. - Cardiology F-U as indicated by [facility] D/C summary. They were recommending cardiac MRI although his D/C summary did not show any cardiac W-U done at [facility]. (2) Healthcare maintenance: Code(s): Z00.00 - Encounter for general adult medical examination without abnormal find ings Category: Medical Plan: CBC, CMP, Lipid panel, A1C, TSH w T4, vit D. Ordered today. Shingles 2 doses when >50 yo. Will discuss next visit. COVID: two doses. Declined. Pneumococcal: 19-64. Declined. Flu vaccine: Declined. Tdap: Declined. Colonoscopy: 45-75. Declined will discuss next visit. Patient understands the risks and benefits of not getting a colonosocpy. AAA: 65 -75. No smoking history. CT lun - 80 PSA: 50 -70 every two years. Next year. HIV: Ordered today. HCV: Ordered today. (3) HTN (hypertension): Code(s): I10 - Essential (primary) hypertension Category: Medical Qualifiers: Hypertension type: primary hypertension Qualified Code(s): I10 - Essential (primary) hypertension Plan: Amlodipine dose increased from 5 mg daily to 10 mg daily. Goal blood pressure is less than 130/80 in stroke patient. Plan During the visit, we discussed the management of the patient's recent stroke, including continuation of current medications and the need for neurology follow- up. I emphasized the importance of blood pressure control and recommended increasing the amlodipine dosage. We also reviewed preventative care measures, particularly colon cancer screening, which the patient declined. I advised on the benefits of early detection and the potential risks of not undergoing screening. Follow-up with neurology and cardiology was recommended, and a referral to physical therapy was made to address any residual weakness. We agreed to see each other in six months for a follow-up visit. Orders: Orders Hemoglobin A1c Today Z00.00 - Encounter for general adult medical examination without abnormal findings HIV Ab/Ag Today Z00.00 - Encounter for general adult medical examination without abnormal findings Vitamin D 25-OH Total Today Z00.00 - Encounter for general adult medical examination without abnormal findings TSH reflex Free T4 Today Z00.00 - Encounter for general adult medical examination without abnormal findings UA and rflx microscopic Today Z00.00 - Encounter for general adult medical examination without abnormal findings Complete Blood Count no Diff Today Z00.00 - Encounter for general adult medical examination without abnormal findings Comprehensive Met. Panel Today Z00.00 - Encounter for general adult medical examination without abnormal findings Hepatitis C Antibody Reflex Today Z00.00 - Encounter for general adult medical examination without abnormal findings Lipid Panel Today Z00.00 - Encounter for general adult medical examination without abnormal findings PT Evaluation and Treatment Today I63.9 - Cerebral infarction, unspecified Referrals Neurology Referral I63.9 - Cerebral infarction, unspecified Cardiology Referral I63.9 - Cerebral infarction, unspecified Medications: New amlodipine 10 mg PO DAILY aspirin 81 mg PO DAILY 90 tabs 3RF atorvastatin (Lipitor) 80 mg PO BEDTIME 90 tabs 3RF clopidogrel 75 mg PO DAILY 90 tabs 3RF
[2025-08-25 08:52] VITALS: BP 140/90; PULSE 81; TEMP 36.4; O2SAT 98; BMI 26.6
--- OUTSIDE RECORDS SUMMARY | 2025-08-25 09:15 | XMS_ITS | Encounter Summary ---
Author Organization [facility] Address [address] [place] [address] [place] [phone] Phone Care Team Providers Care Bistro Attendant Name Role Phone Sandra Wilder MD Primary Care Pr ovider Shauna Merida MD Unavailable [phone] Shauna Merida MD Unavailable [phone] Encounter Details Date Type Department Care Team (Late st Contact Info) Description 04/26/2018 Transcribe Orders [facility] [address] [place] [id number] Breezy Corrales [address] [place] [phone] [email or web address] History Tobacco Use Types Packs/Day Years Used Date Smoking Tobacco: Never Smokeless Tobacco: Never Alcohol Use Standard Drinks/Week Comments Not Asked 0 (1 standard drink = 0.6 oz pur e alcohol) Sex and Gender Information Value Date Recorded Sex Assigned at Not on file Legal Sex Male 9:39 AM EDT Gender Identity Not on file Sexual Orientation Not on file 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 us Ray Yoo MD IMG OUTSIDE IMAGING W/OUT INT ERPRETATION Final Result [facility] documented in this encounter Visit Diagnoses Not on filedocumented in this encounter Care Teams Bistro Attendant Relationship Specialty Start Date End Date Sandra Wilder MD [address] [place] [id number] PCP - General Internal Medicine 07/16/16 Shauna Merida MD [address] [place] [phone] [email or web address] Responding Clinician Cardiology 12/02/16 04/10/19 Shauna Merida MD [address] [place] [id number] [email or web address] Cardiology 04/11/19 documented as of this encounter Additional Source Comments The information contained in this document represents components of the legal health record. It is not the complete legal health record.[facility]
--- OUTSIDE RECORDS SUMMARY | 2025-08-25 09:15 | XMS_ITS | Clinical Summary ---
Author Organization [facility] Address [address] [place] [address] Care Team Providers Care Hand Stitcher Name Role Phone Unavailable Primary Care Provider Unavailabl e Allergies No known active allergies Medications Medication Sig Dispensed Refills Start Date End Date Status felodipine (PLENDIL) 5 MG 24 hr tablet 3 05/19/2016 Active Social History Tobacco Use Types Packs/Day Years Used Date Smoking Tobacco: Never Alcohol Use Standard Drinks/Week Comments No 0 (1 standard drink = 0.6 oz pur e alcohol) Sex and Gender Information Value Date Recorded Sex Assigned at Not on file Gender Identity Not on file Sexual Orientation Not on file Last Filed Vital Signs Vital Sign Reading Time Taken Comments Blood Pressure 137/78 06/14/2016 5:08 PM EDT Pulse 75 06/14/2016 5:08 PM EDT Temperature 36.7 C (98 F) 06/14/2016 5:08 PM EDT Respiratory Rate 17 06/14/2016 5:08 PM EDT Oxygen Saturation 96% 06/14/2016 5:08 PM EDT Inhaled Oxygen Concentration - - Weight 92 kg (202 lb 13.2 oz) 06/14/2016 12:46 P M EDT Height 182.9 cm (6') 06/14/2016 12:46 PM EDT Body Mass Index 27.51 06/14/2016 12:46 PM EDT Plan of Treatment Health Maintenance Due Date Last Done Comments Hepatitis B Vaccines (1 of 3 - 3-dose series) 03/15/1974 Hepatitis C Screening 03/15/1974 COVID-19 Vaccine (#1) 09/15/1974 Depression Screening 03/15/1986 Preventative Health Evaluation 03/15/1992 DTap / Tdap / Td (1 - Tdap) 03/15/1993 Colon Cancer Screening (Colonoscopy) 03/15/2019 Shingrix-Zoster Vaccine (1 of 2) 03/15/2024 Influenza Vaccine (#1) 2025 Pneumococcal Vaccine Aged Out No long er eligible based on patient's age to complete this topic RSV Ped < 20 months Aged Out No longe r eligible based on patient's age to complete this topic
--- OUTSIDE RECORDS SUMMARY | 2025-08-25 09:16 | XMS_ITS | Clinical Summary ---
Author Organization [facility] Address [address] [place] [address] Care Team Providers Care Meringuer Name Role Phone Unavailable Primary Care Provider Unavailabl e Social History Tobacco Use Types Packs/Day Years Used Date Smoking Tobacco: Never Assessed Sex and Gender Information Value Date Recorded Sex Assigned at Not on file Legal Sex Male 9:08 PM EDT Gender Identity Not on file Sexual Orientation Not on file Plan of Treatment Health Maintenance Due Date Last Done Comments Hepatitis C Screening 03/15/1974 DTaP/Tdap/Td (1 - Tdap) 03/15/1992 Hep B (1 of 3 - 19+ 3-dose series) 03/15/1993 Pneumococcal 50+ years (1 of 1 - PCV) 03/15/2024 Zoster (Shingrix) (1 of 2) 03/15/2024 COVID-19 Vaccine ( - 2024-2 6 season) 2025 Influenza (#1) 2025 HPV Vaccine (No Doses Required) Completed Hep A Aged Out No longer eligi ble based on patient's age to complete this topic Hib Aged Out No longer eligi ble based on patient's age to complete this topic Meningococcal ACWY Aged Out No longer eligible based on patient's age to complete this topic
--- OUTSIDE RECORDS SUMMARY | 2025-08-25 09:16 | XMS_ITS | Clinical Summary ---
Author Organization [facility] Address [facility] [email or web address] [facility] [address] [place] [address] Phone Care Team Providers Care Emissions Testing And Repair Technician Name Role Phone Sandra Wilder MD Primary Care Pr ovider Shauna Merida MD Unavailable [phone] Allergies No known active allergies Medications felodipine (PLENDIL) 5 MG 24 hr tablet Take 5 mg by mouth 2 (two) times a day. Active metoprolol succinate (TOPROL-XL) 25 MG 24 hr tablet Take 1 tablet (25 mg total) by mouth daily. 90 tablet 4 11/05/2016 Active Active Problems Problem Noted Date Diagnosed Date Coarctation of thoracic aorta 11/05/2016 Overview (11/05/2016): Repair at age 8 (appears to have been done w/ a patch) He has had a normal brain CT for screen for Chu aneurysms. 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 No symptoms or significant gradient suggested on imaging, though there is some degree of stenosis, and he does have a delay in the peak systolic femoral pulse. We agree with the recommendation for intervention on the pseudoaneurysms, and will discuss with Dr. Parikh and our multidisciplinary team meeting whether a percutaneous or surgical approach would be optimal. Imperfect BP control landy when anxious- will start Metop 25mg qHS and titrate up, in part to reduce dp/dt. Clean coronaries on CTA Bicuspid aortic valve 11/05/2016 Overview (11/05/2016): No AI/ Assessment & Plan (11/05/2016 3:47 PM EST): Bicuspid valve without or AI, on exam or on imaging. FU clinically annually. Pathophysiology and natural history explained in detail. Congenital muscular ventricular septal defect Overview (11/05/2016): Murmur since childhood. 6mm, RVH by CTA in Sep 2016. Assessment & Plan (11/05/2016 3:46 PM EST): Small VSD, without significant RV dilatation by TTE in 03/2016 or pHTN though some RVH on CTA. He does not have a history of endocarditis. Based on the size of the VSD, it is unlikely to become a problem but he should continue to have annual follow-up with us. - Repeat TTE after CoA intervention to reassess RV size/function - Reassess PA pressure w/ PA line during/after CoA intervention, and on subsequent TTE History of appendectomy 11/05/2016 Overview (11/05/2016): Burst appendix leading to peritonitis; surgery in ~1991 and 1 month-long hospital stay. Palpitations 11/05/2016 Overview (11/05/2016): Episode of sustained palpitations in Dec 2015 which resolved w/ IV diltiazem in the ED Assessment & Plan (11/05/2016 3:49 PM EST): By history, more likely to have been Afib or Aflutter (compared to SVT, since he was given Dilt and did not feel when he converted). He is young and has low CHADsVasc score; a 48hrs Holter was normal. No LA/RA dilatation. Will ask for OSH records, and continue to monitor. BB started for HTN and to reduce dp/dt; may also have a beneficial effect on the palpitations/rate control if he does have further episodes. 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 Not on file Not on file Last Filed Vital Signs Vital Sign Reading Time Taken Comments Blood Pressure 150/80 11/05/2016 8:18 AM EST Pulse - - Temperature - - Respiratory Rate - - Oxygen Saturation - - Inhaled Oxygen Concentration - - Weight 97.5 kg (215 lb) 11/05/2016 8:18 AM EST Height 180.3 cm (5' 11 ) 11/05/2016 8:18 AM EST Body Mass Index 29.99 11/05/2016 8:18 AM EST Plan of Treatment Health Maintenance Due Date Last Done Comments BLOOD PRESSURE 03/15/1974 DEPRESSION SCREENING 03/15/1986 HEPATITIS C SCREENING 03/15/1992 HIV ONE-TIME SCREENING (18-65 YEARS) 03/15/1992 LIPID PANEL 03/15/1992 COLOGUARD 03/15/2019 COLONOSCOPY 03/15/2019 COLORECTAL CANCER SCREENING 03/15/2019 FIT TEST 03/15/2019 FOBT 03/15/2019 SIGMOIDOSCOPY 03/15/2019 VIRTUAL COLONOSCOPY 03/15/2019 PNEUMOCOCCAL VACCINES (50+ years) (1 of 1 - PCV) 03/15/2024 ZOSTER VACCINES (1 of 2) 03/15/2024 INFLUENZA VACCINE (#1) 2025 2, 07/09/2021, 06/27/2020, Additional history exists COVID-19 VACCINE (2024- season) 2025 Adult Td,Tdap Booster 07/26/2032 07/26/2022, 015 RSV VACCINE (1 - 1-dose 75+ series) 03/15/2049 SMOKING STATUS SCREENING (Once After 26 Yrs) Completed 09/15/2016 HEPATITIS A VACCINES Aged Out 05/04/2019 No long er eligible based on patient's age to complete this topic HIB VACCINES Aged Out No longer eligi ble based on patient's age to complete this topic MENINGOCOCCAL VACCINES (ACWY) Aged Out No longer eligible based on patient's age to complete this topic MENINGOCOCCAL VACCINES (B) Aged Out N o longer eligible based on patient's age to complete this topic Medical Devices Not on file Insurance [facility] Care Teams Emissions Testing And Repair Technician Relationship Specialty Start Date End Date Sandra Wilder MD [address] [place] [address] PCP - General Internal Medicine 07/16/16 Shauna Merida MD [address] [place] [address] [address] [place] [address] [email or web address] Cardiology 04/11/19 Additional Source Comments The information contained in this document represents components of the legal health record. It is not the complete legal health record.[facility]
--- OUTSIDE RECORDS SUMMARY | 2025-08-25 09:17 | XMS_ITS | Clinical Summary ---
Author Organization [facility] Address [address] [place] [address] Phone Care Team Providers Care Bindery Operator Name Role Phone Sandra Wilder Unavailable [phone] Sandra Wilder Primary Care Provi lynsey Sandra Wilder Unavailable [phone] Ray Yoo MD Unavailable [phone] Social History Tobacco Use Types Packs/Day Years Used Date Smoking Tobacco: Never Assessed Sex and Gender Information Value Date Recorded Sex Assigned at Not on file Legal Sex Male 1:14 AM EDT Gender Identity Not on file Sexual Orientation Not on file Plan of Treatment Not on file Care Teams Bindery Operator Relationship Specialty Start Date End Date Sandra Wilder PCP - Insurance PCP 03/25/18 Sandra Wilder PCP - General 12/01/17 Sandra Wilder PCP - Clinical PCP 12/01/17 Ray Yoo MD [address] [place], [place] [id number] Room Service Associate 04/02/24
--- OUTSIDE RECORDS SUMMARY | 2025-08-25 09:17 | XMS_ITS | Encounter Summary ---
Author Organization [facility] Address [facility] [email or web address] [place] [address] Phone Care Team Providers Care Professor Of Literacy Name Role Phone Sandra Wilder MD Primary Care Pr ovider Shauna Merida MD Unavailable [phone] Shauna Merida MD Unavailable [phone] Encounter Details Date Type Department Care Team (Late st Contact Info) Description 09/18/2016 Procedure Pass [facility], [place] [address] 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 Not on file Not on file documented as of this encounter Plan of Treatment Not on file documented as of this encounter Visit Diagnoses Not on filedocumented in this encounter Care Teams Professor Of Literacy Relationship Specialty Start Date End Date Sandra Wilder MD [address] [place] [address] PCP - General Internal Medicine 07/16/16 Shauna Merida MD 55 [facility] [place] [address] [email or web address] Responding Clinician Cardiology 12/02/16 04/10/19 Sha[facility] MD [facility] [address] [place] [address] [email or web address] Cardiology 04/11/19 documented as of this encounter Additional Source Comments The information contained in this document represents components of the legal health record. It is not the complete legal health record.[facility]
--- OUTSIDE RECORDS SUMMARY | 2025-08-25 09:18 | XMS_ITS | Encounter Summary ---
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 file Not on file documented as of this encounter Plan of Treatment Not on file documented as of this encounter Visit Diagnoses Not on filedocumented in this encounter Care Teams Plumbing Instructor Relationship Specialty Start Date End Date Sandra Wilder MD [address] [place] [address] PCP - General Internal Medicine 07/16/16 Shauna Merida MD 55 [facility] [address] [place] [address] ROSENDO@[email or web address] Responding Clinician Cardiology 12/02/16 04/10/19 Shauna Merida MD 55 [facility] [address] [place] [address] ROSENDO@[email or web address] Cardiology 04/11/19 documented as of this encounter Additional Source Comments The information contained in this document represents components of the legal health record. It is not the complete legal health record.[facility]
--- OUTSIDE RECORDS SUMMARY | 2025-08-25 09:18 | XMS_ITS | Encounter Summary ---
Author Organization [facility] Address [address] [place] [address] [place] [address] Phone Care Team Providers Care Station Usher Name Role Phone Sandra Wilder MD Primary Care Pr ovider Shauna Merida MD Unavailable [phone] Shauna Merida MD Unavailable [phone] Encounter Details Date Type Department Care Team (Late st Contact Info) Description 08/27/2016 Procedure Pass [facility] [address] [place] [address] Social History Tobacco Use Types Packs/Day Years [...] 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 Responding Clinician Cardiology 12/02/16 04/10/19 Shauna Merida MD 55 [facility] [address] [place] [address] [email or web address] Cardiology 04/11/19 documented as of this encounter Additional Source Comments The information contained in this document represents components of the legal health record. It is not the complete legal health record.[facility]
--- OUTSIDE RECORDS SUMMARY | 2025-08-25 09:19 | XMS_ITS | Encounter Summary ---
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 file Not on file documented as of this encounter Plan of Treatment Not on file documented as of this encounter Visit Diagnoses Not on filedocumented in this encounter Care Teams Topographical Drafter Relationship Specialty Start Date End Date Sandra Wilder MD [address] [place] [address] PCP - General Internal Medicine 07/16/16 Shauna Merida MD 55 [facility] [address] [place] [address] ROSENDO@[email or web address] Responding Clinician Cardiology 12/02/16 04/10/19 Shauna Merida MD 55 [facility] [address] [place] [address] ROSENDO@[email or web address] Cardiology 04/11/19 documented as of this encounter Additional Source Comments The information contained in this document represents components of the legal health record. It is not the complete legal health record.[facility]
--- OUTSIDE RECORDS SUMMARY | 2025-08-25 09:19 | XMS_ITS | Encounter Summary ---
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 file Not on file documented as of this encounter Plan of Treatment Not on file documented as of this encounter Visit Diagnoses Not on filedocumented in this encounter Care Teams Paraffin Plant Sweater Operator Relationship Specialty Start Date End Date Sandra Wilder MD [address] [place] [address] PCP - General Internal Medicine 07/16/16 Shauna Merida MD 55 [facility] [address] [place] [address] ROSENDO@[email or web address] Responding Clinician Cardiology 12/02/16 04/10/19 Shauna Merida MD 55 [facility] [address] [place] [address] ROSENDO@[email or web address] Cardiology 04/11/19 documented as of this encounter Additional Source Comments The information contained in this document represents components of the legal health record. It is not the complete legal health record.[facility]
--- OUTSIDE RECORDS SUMMARY | 2025-08-25 09:19 | XMS_ITS | Encounter Summary ---
Author Organization [facility] Address [address] [place] [address] Care Team Providers Care Hollow Core Door Frame Assembler Name Role Phone Md, Unknown Primary Care Provider Unavailabl e Encounter Details Date Type Department Care Team (Late st Contact Info) Description 07/11/2020 Procedure Pass [facility], Radiology (CT Scan) [address] [place] [address] Social History Tobacco Use Types Packs/Day Years Used Date Smoking Tobacco: Never Assessed Sex and Gender Information Value Date Recorded Sex Assigned at Not on file Legal Sex Male 2:22 PM EDT Gender Identity Not on file Sexual Orientation Not on file COVID-19 Exposure Response Date Recorded In the last month, have you been in contact with someone who was confirmed or suspected to have Coronavirus / COVID-19? No / Unsure 07/11/2020 2:37 PM EDT documented as of this encounter Plan of Treatment Not on file documented as of this encounter Visit Diagnoses Not on filedocumented in this encounter Care Teams Hollow Core Door Frame Assembler Relationship Specialty Start Date End Date Md, Unknown 1 Dont Change PCP - General 07/11/20 documented as of this encounter
--- OUTSIDE RECORDS SUMMARY | 2025-08-25 09:20 | XMS_ITS | Clinical Summary ---
Author Organization [employer] [facility] Address [address] [place] [address] Care Team Providers Care Administrative Secretary Name Role Phone Md, Unknown Primary Care Provider Unavailabl e Allergies No known active allergies Medications tamsulosin (FLOMAX) 0.4 mg 24 hr capsule Take 1 capsule (0.4 mg total) by mouth 1 (one) time each day. 14 capsule 07/11/2020 Active Social History Tobacco Use Types Packs/Day Years Used Date Smoking Tobacco: Never Assessed Sex and Gender Information Value Date Recorded Sex Assigned at Not on file Legal Sex Male 2:22 PM EDT Gender Identity Not on file Sexual Orientation Not on file Last Filed Vital Signs Vital Sign Reading Time Taken Comments Blood Pressure 144/82 07/11/2020 5:20 PM EDT Pulse 82 07/11/2020 2:36 PM EDT Temperature 37.2 C (99 F) 07/11/2020 5:20 PM EDT Respiratory Rate 22 07/11/2020 2:36 PM EDT Oxygen Saturation 97% 07/11/2020 5:20 PM EDT Inhaled Oxygen Concentration - - Weight 87 kg (191 lb 12.8 oz) 07/11/2020 2:36 PM EDT Height 182.9 cm (6') 07/11/2020 2:36 PM EDT Body Mass Index 26.01 07/11/2020 2:36 PM EDT Plan of Treatment Health Maintenance Due Date Last Done Comments CT Colonography 03/15/1974 Colonoscopy 03/15/1974 Colorectal Cancer Screening 03/15/1974 FIT-DNA 03/15/1974 FIT 03/15/1974 FOBT 03/15/1974 Sigmoidoscopy 03/15/1974 Annual Physical Exam 03/15/1992 Tdap and Td Vaccines Adult 03/15/1993 Pneumococcal Vaccine: 50+ Ye ars (1 of 1 - PCV) 03/15/2024 Zoster Vaccines (1 of 2) 03/15/2024 COVID-19 Vaccine (1 - 2024-2 6 season) 2025 Influenza Vaccine (#1) 2025 HIB Vaccines Aged Out No longer eligi ble based on patient's age to complete this topic HPV Vaccines (No Doses Required) Completed Hepatitis A Vaccines Aged Out No long er eligible based on patient's age to complete this topic IPV Vaccines Aged Out No longer eligi ble based on patient's age to complete this topic Meningococcal Vaccine Aged Out No fercho kaylene eligible based on patient's age to complete this topic RSV <20 Months Aged Out No longer phillip gible based on patient's age to complete this topic Insurance MEDICAID OUT-STATE Care Teams Administrative Secretary Relationship Specialty Start Date End Date , Unknown 1 Dont Change PCP - General 07/11/20
== END 2025-08-25 09:42 | disposition home or self-care (01) ==
LOC: HO.HMCH 08:41
PROVIDERS: Visit Provider Internal Medicine
DX: I63.9 Cerebral infarction, unspecified (principal); I10 Essential (primary) hypertension